=== PATIENT | female | born 1980 | race Caucasian/White ===

== ENCOUNTER 2019-03-14 16:21 | Emergency (ER) | payer MEDICAID ==
[~2019-03-14] VITALS: Ht 162.6 cm; Wt 62.3 kg
[2019-03-14 16:57] VITALS: BP 144/95; Ht 162.6 cm; Wt 62.3 kg
[2019-03-14] MEDS ORDERED: HUMALOG 30100 UNITS/ SC (16:59)
[2019-03-14] MEDS ORDERED: TOUJEO SOL300 UNIT/1 SC (16:59)
[2019-03-14] MEDS ORDERED: CLEOCIN HCL300 MG PO (18:13)
[2019-03-14] MEDS ORDERED: TORADOL10 MG PO (18:13)
== END 2019-03-14 19:01 | disposition home or self-care (01) ==
LOC: D.ER 16:21
DX: L02.91 Cutaneous abscess, unspecified (principal)